=== PATIENT | male | born 1960 | race Caucasian/White ===

== ENCOUNTER 2018-10-26 19:30 | Emergency (ER) | payer BC | END 2018-10-26 22:34 | disposition home or self-care (01) | LOC: FTE 19:30 | DX: J20.9 Acute bronchitis, unspecified (principal) | CPT/HCPCS: 99283 ==

== ENCOUNTER 2018-12-10 11:40 | Emergency (ER) | payer BC | END 2018-12-10 14:09 | disposition home or self-care (01) | LOC: FTE 11:40 | DX: J06.9 Acute upper respiratory infection, unspecified (principal) | CPT/HCPCS: 71045; 87400; 99284-25 ==